=== PATIENT | male | born 1955 | race Caucasian/White ===

== ENCOUNTER 2016-12-30 15:36 | Emergency (ER) | payer OTHER ==
[~2016-12-30] VITALS: Ht 162.6 cm; Wt 64.4 kg
[2016-12-30 15:55] VITALS: BP 136/90
[2016-12-30] MEDS ORDERED: LIDOCAINE 1%, 20ML ONE (16:34)
[2016-12-30] MEDS ORDERED: DIPH,PERTUSS(ACELL),TET VAC/PF 0.5 ML IM-VACC ONE ×2 (16:44→17:00)
[2016-12-30] MEDS ORDERED: LIDOCAINE 1%, 20ML SQ ONE (17:00)
== END 2016-12-30 17:08 | disposition home or self-care (01) ==
LOC: ED 16:57
DX: S01.81XA Laceration without foreign body of other part of head, initial encounter (principal); W45.8XXA Other foreign body or object entering through skin, initial encounter; Y93.89 Activity, other specified; Y92.89 Other specified places as the place of occurrence of the external cause; Y99.8 Other external cause status
CPT/HCPCS: 12011; 90471; 90715

== ENCOUNTER 2017-01-19 00:37 | Emergency (ER) | payer OTHER ==
[~2017-01-19] VITALS: Ht 167.6 cm; Wt 65.0 kg
[2017-01-19] MEDS ORDERED: OXYMETAZOLINE NASAL SPRAY 0.05%, 15ML ONE (00:52)
[2017-01-19 02:14] VITALS: BP 160/97
== END 2017-01-19 02:15 | disposition home or self-care (01) ==
LOC: ED 02:05
DX: R04.0 Epistaxis (principal); Z88.0 Allergy status to penicillin; Z88.2 Allergy status to sulfonamides; Z88.1 Allergy status to other antibiotic agents
CPT/HCPCS: 99283

== ENCOUNTER 2017-11-10 18:09 | Emergency (ER) | payer SELFPAY ==
[~2017-11-10] VITALS: Ht 167.6 cm; Wt 65.0 kg
[2017-11-10 18:11] VITALS: BP 160/92
== END 2017-11-10 18:50 | disposition home or self-care (01) ==
LOC: ED 18:44
DX: K64.5 Perianal venous thrombosis (principal); Z88.0 Allergy status to penicillin; Z88.2 Allergy status to sulfonamides
CPT/HCPCS: 99284